=== PATIENT | female | born 1955 | race African-American/Black ===

== ENCOUNTER 2024-11-27 14:14 | Emergency (ER) | payer MEDICARE ==
[~2024-11-27] VITALS: Ht 165.1 cm; Wt 109.0 kg
[2024-11-27 14:28] VITALS: O2SAT 97
[2024-11-27 15:03] LABS: CLARITY URINE CLEAR (CLEAR); COLOR URINE YELLOW (YELLOW); GLUCOSE URINE 3+ (NEGATIVE); KETONES URINE 2+ (NEGATIVE); LEUKOCYTE ESTERASE URINE NEGATIVE (NEGATIVE); NITRITE URINE NEGATIVE (NEGATIVE); OCCULT BLOOD URINE NEGATIVE (NEGATIVE); PH URINE 5.5 (4.5-8.0); PROTEIN URINE NEGATIVE (NEGATIVE); SPECIFIC GRAVITY URINE 1.035 (1.005-1.030); UROBILINOGEN URINE 0.2 E.U./dL (0.2-1.0)
[2024-11-27 15:12] LABS: BACTERIA URINE TRACE; RBC URINE 0-2 /hpf (0-2); SQUAMOUS EPITHELIAL CELL URINE 1+ /lpf (RARE/1+); YEAST URINE 1+
[2024-11-27] MEDS: SODIUM CHLORIDE 0.9% 1,000 ML IV ONE (15:14)
[2024-11-27 15:48] LABS: BG DEOXYHEMOGLOBIN 29.5 % (0.0-5.0)
[2024-11-27 15:52] LABS: BASOPHILS % 0.4 % (0.0-2.0); EOSINOPHILS % 0.6 % (0.0-5.0); HEMATOCRIT. 43.3 % (36.0-48.0); HEMOGLOBIN. 14.2 g/dL (12.0-16.0); LYMPHOCYTES % 26.3 % (20.0-50.0); MEAN PLATELET VOLUME 7.8 fl (7.4-10.4); MONOCYTES % 8.6 % (2.0-8.0); NEUTROPHILS % 64.1 % (40.0-76.0); PLATELET 274 x1000/uL (130-400); RED BLOOD CELL COUNT 4.55 mill/uL (4.2-5.4); RED CELL DISTRIBUTION WIDTH 13.9 % (11.6-14.6)
[2024-11-27 16:06] LABS: CREATININE 1.1 mg/dL (0.6-1.0); UREA NITROGEN BLOOD 9 mg/dL (9-23)
[2024-11-27] MEDS ORDERED: INSU100I11 SQ (17:09)
[2024-11-27] MEDS ORDERED: METF-416 MT (17:10)
[2024-11-27] MEDS ORDERED: EMPA10TA MT (17:10)
[2024-11-27] MEDS: INSULIN REGULAR (HUMULIN R) 1000UNITS/10ML VIAL IV ONE (18:15)
[2024-11-27 18:33] VITALS: BP 155/58; PULSE 80; RESP 16; TEMP 36.8; O2SAT 98
== END 2024-11-27 18:25 | disposition home or self-care (01) ==
LOC: ER 14:14 → CANBEDREQ 17:13 → ER 18:25
DX: E11.65 Type 2 diabetes mellitus with hyperglycemia (principal); I10 Essential (primary) hypertension; F03.90 Unspecified dementia, unspecified severity, without behavioral disturbance, psychotic disturbance, mood disturbance, and anxiety; E78.5 Hyperlipidemia, unspecified; Z86.73 Personal history of transient ischemic attack (TIA), and cerebral infarction without residual deficits; Z79.84 Long term (current) use of oral hypoglycemic drugs; Z79.4 Long term (current) use of insulin; Z79.899 Other long term (current) drug therapy
CPT/HCPCS: 99283; 96374; 96361; 80048; 81003; 82010; 82962; 83735; 83930; 85025; 36415; 82375; 82803; J1815

== ENCOUNTER 2025-01-09 22:52 | Inpatient (IN) | payer MEDICARE ==
[~2025-01-09] VITALS: Ht 172.7 cm; Wt 90.9 kg
[~2025-01-09 22:52] MED LIST: EMPA10TA MT; INSU100I11 SQ; METF-416 MT
[2025-01-09 23:09] VITALS: O2SAT 98
[2025-01-10 00:20] LABS: BG DEOXYHEMOGLOBIN 15.4 % (0.0-5.0)
[2025-01-10 00:32] LABS: CLARITY URINE CLOUDY (CLEAR); COLOR URINE YELLOW (YELLOW); GLUCOSE URINE 3+ (NEGATIVE); KETONES URINE TRACE (NEGATIVE); LEUKOCYTE ESTERASE URINE 2+ (NEGATIVE); NITRITE URINE NEGATIVE (NEGATIVE); OCCULT BLOOD URINE NEGATIVE (NEGATIVE); PH URINE 5.0 (4.5-8.0); PROTEIN URINE TRACE (NEGATIVE); SPECIFIC GRAVITY URINE 1.037 (1.005-1.030); UROBILINOGEN URINE 0.2 E.U./dL (0.2-1.0)
[2025-01-10 00:33] LABS: BASOPHILS % 0.6 % (0.0-2.0); EOSINOPHILS % 0.9 % (0.0-5.0); HEMATOCRIT. 44.1 % (36.0-48.0); HEMOGLOBIN. 14.5 g/dL (12.0-16.0); LYMPHOCYTES % 37.0 % (20.0-50.0); MEAN PLATELET VOLUME 7.5 fl (7.4-10.4); MONOCYTES % 9.7 % (2.0-8.0); NEUTROPHILS % 51.8 % (40.0-76.0); PLATELET 335 x1000/uL (130-400); RED BLOOD CELL COUNT 4.72 mill/uL (4.2-5.4); RED CELL DISTRIBUTION WIDTH 13.2 % (11.6-14.6)
[2025-01-10 00:41] LABS: CREATININE 0.9 mg/dL (0.6-1.0); UREA NITROGEN BLOOD 10 mg/dL (9-23)
[2025-01-10 00:42] LABS: PROTEIN TOTAL 8.5 g/dL (6.0-8.3)
[2025-01-10 00:43] LABS: ASPARTATE AMINOTRANSFERASE 25 IU/L (<34)
[2025-01-10 00:44] LABS: BILIRUBIN DIRECT < 0.1 mg/dL (<=3.0); BILIRUBIN TOTAL 0.3 mg/dL (0.1-1.0)
[2025-01-10] MEDS: SODIUM CHLORIDE 0.9% 1,000 ML IV ONE ×2 (00:52→02:11)
[2025-01-10 01:07] LABS: SQUAMOUS EPITHELIAL CELL URINE 2+ /lpf (RARE/1+)
[2025-01-10 01:08] LABS: BACTERIA URINE 1+; RBC URINE NONE SEEN /hpf (0-2); WBC URINE 25-50 /hpf (0-2)
[2025-01-10] MEDS: SODIUM CHLORIDE 0.45% 1,000 ML IV SCH (01:45)
[2025-01-10] MEDS ORDERED: MAGNESIUM/ALUMINUM HYDROXIDE/SIMETHICONE 30ML UDC PO PRN (01:45)
[2025-01-10] MEDS ORDERED: ONDANSETRON HCL 4MG/2ML INJ IV PRN (01:45)
[2025-01-10] MEDS ORDERED: IPRATROPIUM/ALBUTEROL 0.5-3(2.5)MG/3ML NEB NEB PRN (01:45)
[2025-01-10] MEDS ORDERED: GUAIFENESIN 200MG/10ML SUGAR FREE UDC PO PRN (01:45)
[2025-01-10] MEDS ORDERED: ACETAMINOPHEN 325MG TABLET PO PRN ×2 (01:45)
[2025-01-10] MEDS: CEFTRIAXONE 2GM/50ML 50 ML IV ONE (02:11)
[2025-01-10 07:37] LABS: BASOPHILS % 0.1 % (0.0-2.0); EOSINOPHILS % 0.1 % (0.0-5.0); HEMATOCRIT. 39.9 % (36.0-48.0); HEMOGLOBIN. 13.2 g/dL (12.0-16.0); LYMPHOCYTES % 18.4 % (20.0-50.0); MEAN PLATELET VOLUME 7.4 fl (7.4-10.4); MONOCYTES % 7.1 % (2.0-8.0); NEUTROPHILS % 74.3 % (40.0-76.0); PLATELET 291 x1000/uL (130-400); RED BLOOD CELL COUNT 4.27 mill/uL (4.2-5.4); RED CELL DISTRIBUTION WIDTH 13.2 % (11.6-14.6)
[2025-01-10 07:57] LABS: CREATININE 0.6 mg/dL (0.6-1.0)
[2025-01-10 07:58] LABS: LDL CHOLESTEROL 95 mg/dL (5-100); PROTEIN TOTAL 6.8 g/dL (6.0-8.3); TRIGLYCERIDE 56 mg/dL (0-150); UREA NITROGEN BLOOD 8 mg/dL (9-23)
[2025-01-10 07:59] LABS: ASPARTATE AMINOTRANSFERASE 9 IU/L (<34)
[2025-01-10 08:00] LABS: BILIRUBIN DIRECT < 0.1 mg/dL (<=3.0); BILIRUBIN TOTAL 0.2 mg/dL (0.1-1.0); PHOSPHORUS 3.8 mg/dL (2.5-4.9)
[2025-01-10 08:01] LABS: T4 FREE 1.30 ng/dL (0.89-1.76)
[2025-01-10] MEDS: ENOXAPARIN 30MG/0.3ML SYR SUBCUT SCH (09:00)
[2025-01-10 09:15] VITALS: BP 134/76; PULSE 77; RESP 16; TEMP 37.0296
[2025-01-10 12:00] VITALS: BP 136/74; PULSE 78; RESP 16; TEMP 37; O2SAT 99
[2025-01-10 16:00] VITALS: BP 127/90; PULSE 88; RESP 18; TEMP 36.6; O2SAT 98
[2025-01-10 20:00] VITALS: BP 141/75; PULSE 98; RESP 17; TEMP 36.1; O2SAT 97
[2025-01-10] MEDS: MELATONIN 3MG TABLET PO SCH (22:05)
[2025-01-11] VITALS: BP 127/71; PULSE 78; RESP 18; TEMP 36.5; O2SAT 97
[2025-01-11] MEDS ORDERED: CEFTRIAXONE 1GM/50ML 50 ML IV SCH (02:00)
[2025-01-11] MEDS: CEFTRIAXONE 1GM/50ML 50 ML IV SCH (02:04)
[2025-01-11 02:20] LABS: TROPONIN I HIGH SENSITIVITY 4 ng/L (3.0-34)
[2025-01-11 04:00] VITALS: BP 142/67; PULSE 82; RESP 18; TEMP 36.3; O2SAT 99
[2025-01-11 07:20] LABS: CREATINE KINASE MB FRACTION < 0.5 ng/mL (0.5-3.6)
[2025-01-11 08:00] VITALS: BP 151/91; PULSE 87; RESP 18; TEMP 36.9; O2SAT 98
[2025-01-11 08:44] LABS: TROPONIN I HIGH SENSITIVITY 5 ng/L (3.0-34)
[2025-01-11] MEDS: CLONIDINE 0.1MG TABLET PO PRN (09:27)
[2025-01-11] MEDS: NITROGLYCERIN SPRAY/4.9GM CAN TL NR (11:30)
[2025-01-11] MEDS: METOPROLOL TARTRATE 5MG/5ML VIAL IV PRN (11:38)
[2025-01-11 12:00] VITALS: BP 129/76; PULSE 75; RESP 18; TEMP 36.3; O2SAT 97
[2025-01-11] MEDS ORDERED: IOHEXOL-350 100 ML BOTTLE ONE (12:28)
[2025-01-11] MEDS ORDERED: NITROGLYCERIN SPRAY/4.9GM CAN TL ONE (12:30)
[2025-01-11] MEDS: MAGNESIUM 2 G PREMIX 50 ML IV NR (13:06)
[2025-01-11] MEDS: INSULIN LISPRO 100 UNITS/ML SUBCUT SCH (13:22)
[2025-01-11 16:00] VITALS: BP 109/66; PULSE 67; RESP 18; TEMP 36.4; O2SAT 97
[2025-01-11 20:00] VITALS: BP 122/74; PULSE 72; RESP 18; TEMP 36.4; O2SAT 97
[2025-01-11] MEDS: BLOOD SUGAR DIAGNOSTIC STRIP TEST SCH (21:47)
[2025-01-12] VITALS: BP 134/81; PULSE 71; RESP 18; TEMP 36.2; O2SAT 97
[2025-01-12 04:00] VITALS: BP 137/80; PULSE 78; RESP 17; TEMP 36.3; O2SAT 95
[2025-01-12 08:00] VITALS: BP 128/74; PULSE 82; RESP 18; TEMP 36.3; O2SAT 93
[2025-01-12] MEDS: ASPIRIN 81MG TABLET PO SCH (08:39)
[2025-01-12 12:00] VITALS: BP 141/84; PULSE 87; RESP 16; TEMP 36.5; O2SAT 97
[2025-01-12 13:07] LABS: BASOPHILS % 0.3 % (0.0-2.0); EOSINOPHILS % 1.0 % (0.0-5.0); HEMATOCRIT. 40.1 % (36.0-48.0); HEMOGLOBIN. 13.3 g/dL (12.0-16.0); LYMPHOCYTES % 28.1 % (20.0-50.0); MEAN PLATELET VOLUME 8.2 fl (7.4-10.4); MONOCYTES % 8.5 % (2.0-8.0); NEUTROPHILS % 62.1 % (40.0-76.0); PLATELET 267 x1000/uL (130-400); RED BLOOD CELL COUNT 4.25 mill/uL (4.2-5.4); RED CELL DISTRIBUTION WIDTH 13.3 % (11.6-14.6)
[2025-01-12 13:23] LABS: CREATININE 0.9 mg/dL (0.6-1.0); UREA NITROGEN BLOOD 10 mg/dL (9-23)
[2025-01-12 13:25] LABS: PHOSPHORUS 3.5 mg/dL (2.5-4.9)
[2025-01-12] MEDS ORDERED: ATORVASTATIN CALCIUM 40MG TABLET PO SCH (21:00)
[2025-01-12] MEDS ORDERED: INSULIN GLARGINE 100 UNITS/ML SUBCUT SCH ×2 (22:00)
== END 2025-01-12 14:08 | disposition left against medical advice (07) | DRG 638 ==
LOC: ER 22:52 → 5WST 01-10 01:21 → EDBEDREQSVC 01-10 01:35 → EDBEDREQ 01-10 01:35 → EDBEDREQTM 01-10 01:35 → EDBEDREQDT 01-10 01:35
PROVIDERS: ADMIT Internal Medicine; ATTEND Internal Medicine
PROC: 4A10X4Z Monitoring of Central Nervous Electrical Activity, External Approach (ICD-10-PCS; principal; 2025-01-11)
DX: E11.65 Type 2 diabetes mellitus with hyperglycemia (principal); N39.0 Urinary tract infection, site not specified; E78.5 Hyperlipidemia, unspecified; I10 Essential (primary) hypertension; F03.90 Unspecified dementia, unspecified severity, without behavioral disturbance, psychotic disturbance, mood disturbance, and anxiety; G47.33 Obstructive sleep apnea (adult) (pediatric); Z86.73 Personal history of transient ischemic attack (TIA), and cerebral infarction without residual deficits; I25.2 Old myocardial infarction; Z53.29 Procedure and treatment not carried out because of patient's decision for other reasons
CPT/HCPCS: 36415; 70551; 71045; 75571; 80048; 80061; 80076; 81003; 82010; 82375; 82550; 82553; 82803; 82962; 83036; 83605; 83735; 83880; 84100; 84145; 84439; 84443; 84484; 85025; 85379; 93005; 93306; 93880; 95816; 97162; 97166; 99291; J0696; J1650; J1815; J3475; J3490; J7030; Q9967